=== PATIENT | female | born 1965 | race Two or more races ===

== ENCOUNTER 2020-03-25 13:44 | Emergency (ER) | payer SELFPAY ==
[~2020-03-25] VITALS: Ht 152.4 cm; Wt 122.5 kg
[2020-03-25 14:24] LABS: Urine WBC None Seen /hpf (0 - 5)
[2020-03-25 14:44] LABS: Basophils # (auto) 0 10 ^3/uL (0-0.2); Basophils % (auto) 0.6 % (0.0-2.0); Eosinophils # (auto) 0.1 10 ^3/uL (0-0.8); Eosinophils % (auto) 1.3 % (0.0-7.0); Hematocrit 44.3 % (36.0-46.0); Hemoglobin 15.2 g/dL (12.2-16.2); Lymphocytes # (auto) 3.2 10 ^3/uL (0.4-5.4); Lymphocytes % (auto) 44.3 % (10.0-50.0); Mean Corpuscular Hemoglobin 30.1 pg (28.0-32.0); Mean Corpuscular Hgb Conc. 34.4 g/dL (32.0-36.0); Mean Corpuscular Volume 87.4 fL (80.0-100.0); Monocytes # (auto) 0.5 10 ^3/uL (0-1.3); Monocytes % (auto) 6.7 % (0.0-12.0); Neutrophils # (auto) 3.4 10 ^3/uL (1.6-8.6); Neutrophils % (auto) 47.1 % (37.0-80.0); Nucleated Red Blood Cells % 0.1 %; Platelet Count (auto) 307 10^3/uL (140-450); Red Blood Cells 5.06 10^6/uL (4.0-5.20); Red Cell Distribution Width 13.7 % (11.8-14.3); White Blood Cell 7.2 10^3/uL (4.4-10.8)
[2020-03-25 14:45] LABS: Urine Bacteria FEW /hpf (None Seen); Urine Blood Negative /uL (Negative); Urine Specific Gravity 1.005 (1.001-1.035)
[2020-03-25 14:58] LABS: Albumin 4.1 g/dL (3.4-5.0); BUN/Creatinine Ratio 13.7; Calcium 9.5 mg/dL (8.5-10.1); Potassium 3.7 mmol/L (3.5-5.1)
[2020-03-25 15:01] LABS: Bilirubin, Total 0.4 mg/dL (0.2-1.0); Total Protein 8.1 g/dL (6.4-8.2)
[2020-03-25 17:32] VITALS: BP 156/83
== END 2020-03-25 17:34 | disposition home or self-care (01) ==
LOC: ER 13:44
DX: R10.32 Left lower quadrant pain (principal); M25.512 Pain in left shoulder; R05 Cough; I10 Essential (primary) hypertension
CPT/HCPCS: 36415; 74176; 80053; 81001; 85025

== ENCOUNTER 2023-01-19 10:02 | Inpatient (IN) | payer MEDICAID ==
[2023-01-17 12:20] LABS: Basophils # (auto) 0.1 10 ^3/uL (0-0.2); Basophils % (auto) 1.1 % (0.0-2.0); Eosinophils # (auto) 0.1 10 ^3/uL (0-0.8); Hemoglobin 14.1 g/dL (12.2-16.2); Lymphocytes # (auto) 2.1 10 ^3/uL (0.4-5.4); Lymphocytes % (auto) 34.6 % (10.0-50.0); Mean Corpuscular Hemoglobin 30.1 pg (28.0-32.0); Mean Corpuscular Hgb Conc. 34.4 g/dL (32.0-36.0); Mean Corpuscular Volume 87.4 fL (80.0-100.0); Monocytes # (auto) 0.3 10 ^3/uL (0-1.3); Monocytes % (auto) 5.5 % (0.0-12.0); Neutrophils # (auto) 3.4 10 ^3/uL (1.6-8.6); Neutrophils % (auto) 56.8 % (37.0-80.0); Nucleated Red Blood Cells % 0.1 %; Red Blood Cells 4.69 10^6/uL (4.0-5.20); Red Cell Distribution Width 14.1 % (11.8-14.3)
[2023-01-17 12:29] LABS: Urine Bacteria FEW /hpf (None Seen); Urine Blood Negative /uL (Negative); Urine Specific Gravity 1.024 (1.001-1.035); Urine WBC 2 /hpf (0 - 5)
[2023-01-17 12:47] LABS: INR 0.98 (0.9-1.15); Partial Thromboplastin Time 26.5 sec (24.6-33.4)
[2023-01-17 12:59] LABS: Albumin 3.8 g/dL (3.4-5.0); Calcium 8.7 mg/dL (8.5-10.1); Potassium 4.2 mmol/L (3.5-5.1)
[2023-01-17 13:04] LABS: BUN/Creatinine Ratio 18.9 (10.0-20.0); Bilirubin, Total 0.3 mg/dL (0.2-1.0); Total Protein 7.1 g/dL (6.4-8.2)
[~2023-01-19] VITALS: Ht 154.9 cm; Wt 107.3 kg
[~2023-01-19 10:02] MED LIST: HYDR25TA5 PO; LOSA25TA15 PO; METF-489 PO
[2023-01-19] MEDS ORDERED: ceFAZolin 1GM/50ML 100 ML IV ONE (14:23)
[2023-01-19] MEDS ORDERED: ONDANSETRON HCL 4 MG/2 ML VIAL ONE (14:47)
[2023-01-19] MEDS ORDERED: KETOROLAC TROMETH 30 MG/ML 1ML VIAL ONE (14:47)
[2023-01-19] MEDS ORDERED: GLYCOPYRROLATE 0.2 MG/ML 1ML VIAL ONE (14:47)
[2023-01-19] MEDS ORDERED: LIDOCAINE 2% (LOCAL ANESTH.) PF 5ml SDV ONE (14:47)
[2023-01-19] MEDS ORDERED: DexAMETHasone SOD PHOS 10MG/1ML VIAL INJ ONE (14:47)
[2023-01-19] MEDS ORDERED: LIDOCAINE 1% (LOCAL ANESTH.) PF 5ml SDV ONE (15:12)
[2023-01-19] MEDS ORDERED: BUPIVACAINE 0.25% INJ 50ML VIAL ONE (15:12)
[2023-01-19] MEDS ORDERED: HYDR-4902 PO (16:58)
[2023-01-19] MEDS ORDERED: AUG875T PO (16:58)
[2023-01-19] MEDS ORDERED: ONDANSETRON HCL 4 MG/2 ML VIAL IV PRN ×2 (17:15→18:00)
[2023-01-19] MEDS ORDERED: MORPHINE SULFATE 4 MG/ML SYR/VIAL IV PRN (17:15)
[2023-01-19] MEDS ORDERED: MIDAZOLAM HCL 2MG/2ML 2ml VIAL (1mg/ml) IV PRN (17:15)
[2023-01-19] MEDS ORDERED: LABETALOL HCL 5 MG/ML 4ML SYRINGE IV PRN (17:15)
[2023-01-19] MEDS ORDERED: HYDROmorphone HCL 2 MG/ML VL/or syr IV PRN (17:15)
[2023-01-19] MEDS ORDERED: ePHEDrine SULFATE 50 MG/ML AMP IV PRN (17:15)
[2023-01-19] MEDS ORDERED: DEXTROSE (50%) 50ML SYRG IV PRN (18:00)
[2023-01-19] MEDS: SODIUM CHLORIDE 0.9% 1,000 ML IV SCH (18:33)
[2023-01-19 19:02] VITALS: BP 121/58
[2023-01-19 19:48] LABS: Magnesium 2.3 mg/dL (1.6-2.6); Phosphorus 2.8 mg/dL (2.5-4.90)
[2023-01-19 20:00] VITALS: BP 121/58
[2023-01-19] MEDS: ceFAZolin 1GM/50ML 50 ML IV SCH (21:30)
[2023-01-19] MEDS: ACCU-CHEK COMFORT CURVE STRIP VI SCH (21:33)
[2023-01-19] MEDS: InsuLIN REG 1unit/0.01ml Soln (100units/ml) SC SCH (21:49)
[2023-01-20] MEDS: MORPHINE SULFATE INJ 2 MG/ml SYRG IV PRN ×2 (02:09→12:07)
[2023-01-20] MEDS: SODIUM CHLORIDE 0.9% 1,000 ML IV SCH ×4 (04:58→23:40)
[2023-01-20] MEDS: ceFAZolin 1GM/50ML 50 ML IV SCH ×3 (05:24→21:42)
[2023-01-20] MEDS: ACCU-CHEK COMFORT CURVE STRIP VI SCH ×2 (06:29→11:58)
[2023-01-20] MEDS: InsuLIN REG 1unit/0.01ml Soln (100units/ml) SC SCH ×2 (06:32→11:30)
[2023-01-20 07:12] LABS: Basophils # (auto) 0 10 ^3/uL (0-0.2); Basophils % (auto) 0.1 % (0.0-2.0); Eosinophils # (auto) 0 10 ^3/uL (0-0.8); Lymphocytes # (auto) 1.2 10 ^3/uL (0.4-5.4); Lymphocytes % (auto) 13.4 % (10.0-50.0); Mean Corpuscular Hemoglobin 30.5 pg (28.0-32.0); Mean Corpuscular Hgb Conc. 35.2 g/dL (32.0-36.0); Mean Corpuscular Volume 86.6 fL (80.0-100.0); Monocytes # (auto) 0.2 10 ^3/uL (0-1.3); Monocytes % (auto) 2.6 % (0.0-12.0); Neutrophils # (auto) 7.5 10 ^3/uL (1.6-8.6); Neutrophils % (auto) 83.9 % (37.0-80.0); Nucleated Red Blood Cells % 0.1 %; Red Blood Cells 4.27 10^6/uL (4.0-5.20); Red Cell Distribution Width 14.4 % (11.8-14.3); White Blood Cell 8.9 10^3/uL (4.4-10.8)
[2023-01-20 07:57] LABS: Albumin 3.2 g/dL (3.4-5.0); Potassium 3.7 mmol/L (3.5-5.1)
[2023-01-20 08:00] VITALS: BP 111/59
[2023-01-20 08:08] LABS: BUN/Creatinine Ratio 16.7 (10.0-20.0); Bilirubin, Total 0.3 mg/dL (0.2-1.0)
[2023-01-20] MEDS: LOSARTAN POTASSIUM 25 MG TAB PO SCH (08:44)
[2023-01-20] MEDS: PANTOPRAZOLE 40 MG/10 ML VIAL INJ IV SCH (08:44)
[2023-01-20] MEDS: HCTZ 25 MG TAB PO SCH (08:45)
[2023-01-20 13:31] VITALS: BP 120/73
[2023-01-20] MEDS: ACETAMINOPHEN 500 MG TAB PO PRN (16:41)
[2023-01-20 16:46] VITALS: BP_SYST 124; BP_SYST 140; BP_DIAS 62; BP_DIAS 95
[2023-01-20] MEDS: HYDROcodone-ACET 5/325MG TAB PO PRN (21:42)
[2023-01-20 22:00] VITALS: BP 108/64
[2023-01-21 05:00] VITALS: BP 116/64
[2023-01-21] MEDS: ceFAZolin 1GM/50ML 50 ML IV SCH ×3 (05:54→22:04)
[2023-01-21 09:00] VITALS: BP 126/65
[2023-01-21] MEDS: DOCUSATE SOD 100 MG CAP PO PRN (09:20)
[2023-01-21] MEDS: HCTZ 25 MG TAB PO SCH (09:21)
[2023-01-21] MEDS: LOSARTAN POTASSIUM 25 MG TAB PO SCH (09:22)
[2023-01-21] MEDS: PANTOPRAZOLE 40 MG/10 ML VIAL INJ IV SCH (09:23)
[2023-01-21] MEDS: HYDROcodone-ACET 5/325MG TAB PO PRN ×2 (09:23→17:20)
[2023-01-21 13:00] VITALS: BP 115/64
[2023-01-21] MEDS: SODIUM CHLORIDE 0.9% 1,000 ML IV SCH ×2 (13:11→22:05)
[2023-01-21] MEDS ORDERED: HYDR-4902 PO (13:58)
[2023-01-21] MEDS ORDERED: AUG875T PO (13:58)
[2023-01-21 17:00] VITALS: BP 125/59
[2023-01-21] MEDS: ACETAMINOPHEN 500 MG TAB PO PRN (18:55)
[2023-01-21 22:00] VITALS: BP 120/67
[2023-01-22] MEDS: HYDROcodone-ACET 5/325MG TAB PO PRN ×2 (02:39→11:49)
[2023-01-22] MEDS: SODIUM CHLORIDE 0.9% 1,000 ML IV SCH ×2 (04:20→12:40)
[2023-01-22 05:00] VITALS: BP 117/57
[2023-01-22] MEDS: ceFAZolin 1GM/50ML 50 ML IV SCH ×2 (06:07→14:00)
[2023-01-22] MEDS: LOSARTAN POTASSIUM 25 MG TAB PO SCH (08:47)
[2023-01-22] MEDS: PANTOPRAZOLE 40 MG/10 ML VIAL INJ IV SCH (08:47)
[2023-01-22] MEDS: HCTZ 25 MG TAB PO SCH (08:48)
[2023-01-22] MEDS: ACETAMINOPHEN 500 MG TAB PO PRN (08:48)
[2023-01-22 09:00] VITALS: BP 143/74
[2023-01-22] MEDS: DOCUSATE SOD 100 MG CAP PO PRN (11:49)
[2023-01-22 12:54] VITALS: BP 133/66
[2023-01-22 14:09] VITALS: BP 147/82
== END 2023-01-22 15:07 | disposition home or self-care (01) | DRG 314 ==
LOC: SUR 10:02 → TELE 17:51 → TELE-WESTW 18:25
PROVIDERS: ADMIT Nurse Practitioner Family; ATTEND Internal Medicine Geriatric Medicine
PROC: BQ1MZZZ Fluoroscopy of Left Foot (ICD-10-PCS; 2023-01-19)
PROC: 0QSP04Z Reposition Left Metatarsal with Internal Fixation Device, Open Approach (ICD-10-PCS; principal; 2023-01-19 15:14)
DX: M20.12 Hallux valgus (acquired), left foot (principal); E11.9 Type 2 diabetes mellitus without complications; R00.1 Bradycardia, unspecified; M24.50 Contracture, unspecified joint; I10 Essential (primary) hypertension; E66.9 Obesity, unspecified; Z68.41 Body mass index [BMI] 40.0-44.9, adult; Z83.3 Family history of diabetes mellitus
CPT/HCPCS: 36415; 73630; 76000; 80053; 81001; 82962; 83735; 84100; 85025; 85610; 85730; 93306; 97110; 97116; 97163; 97530; C9113; G0378; J0690; J1100; J1815; J1885; J2001; J2405; J3490

== ENCOUNTER → 2023-12-21 | Day surgery (SDC) | payer MEDICAID ==
[2023-12-18 14:32] LABS: Basophils # (auto) 0.1 10 ^3/uL (0-0.2); Basophils % (auto) 0.6 % (0.0-2.0); Eosinophils # (auto) 0.1 10 ^3/uL (0-0.8); Eosinophils % (auto) 1.1 % (0.0-7.0); Hematocrit 40.2 % (36.0-46.0); Hemoglobin 13.5 g/dL (12.2-16.2); Lymphocytes # (auto) 2.5 10 ^3/uL (0.4-5.4); Lymphocytes % (auto) 31.8 % (10.0-50.0); Mean Corpuscular Hemoglobin 28.8 pg (28.0-32.0); Mean Corpuscular Hgb Conc. 33.5 g/dL (32.0-36.0); Mean Corpuscular Volume 85.8 fL (80.0-100.0); Monocytes # (auto) 0.4 10 ^3/uL (0-1.3); Monocytes % (auto) 4.9 % (0.0-12.0); Neutrophils # (auto) 4.9 10 ^3/uL (1.6-8.6); Neutrophils % (auto) 61.6 % (37.0-80.0); Red Blood Cells 4.68 10^6/uL (4.0-5.20); Red Cell Distribution Width 14.1 % (11.8-14.3)
[2023-12-18 14:43] LABS: INR 1.05 (0.9-1.15); Partial Thromboplastin Time 27.2 SEC (24.5-34.5); Prothrombin Time 11.1 sec (9.3-11.8); Urine Bacteria FEW /hpf (None Seen); Urine Blood Negative /uL (Negative); Urine Clarity Clear (Clear); Urine Protein, UAD Negative (Negative); Urine Specific Gravity 1.009 (1.001-1.035); Urine Urobilinogen Normal (Negative); Urine WBC 1 /hpf (0 - 5); Urine pH 5.5 (5.0-9.0)
[2023-12-18 14:48] LABS: Urine Color STRAW (Yellow)
[2023-12-18 15:08] LABS: Alanine Aminotransferase 21 U/L (7-40); Albumin 4.5 g/dL (3.2-4.8); Alkaline Phosphatase 86 U/L (46-116); Anion Gap 6 (5-15); Aspartate Aminotransferase 18 U/L (13-40); BUN/Creatinine Ratio 27.6 (10.0-20.0); Bilirubin, Total 0.3 mg/dL (0.2-1.0); Blood Urea Nitrogen 24 mg/dL (9-23); Calcium 10.1 mg/dL (8.5-10.1); Carbon Dioxide 28 mmol/L (20-30); Chloride 105 mmol/L (98-107); Glucose 101 mg/dL (74-106); Potassium 3.6 mmol/L (3.5-5.1); Sodium 139 mmol/L (136-145); Total Protein 7.3 g/dL (5.7-8.2)
[~2023-12-21] VITALS: Ht 154.9 cm; Wt 97.1 kg
[~2023-12-21] MED LIST changes: +APIX5TAB PO; +AUG875T PO; +DULO60CA41 PO; +DexAMETHasone SOD PHOS 10MG/1ML VIAL INJ ONE; +HYDR-4902 PO; +LIDOCAINE HCL (LOCAL ANESTH.) 0.5 % 50ML MDV IJ ONE; +LOSA-533 PO; -LOSA25TA15 PO; +MEPERIDINE HCL (25 MG/ML) 1ML VIAL IV PRN; +MEPERIDINE HCL (25 MG/ML) 1ML VIAL ONE; -METF-489 PO; +ONDANSETRON HCL 4 MG/2 ML VIAL ONE; +PROPOFOL 10 MG/ML 20 ML IV ONE; +TRAM50TA2 PO; +ceFAZolin 2 GM/D5W50ml 50 ML IV ONE; +fentaNYL CITRATE 100 MCG/2 ML VL ONE
[2023-12-21] MEDS: BUPIVACAINE 0.25% INJ 50ML VIAL ONE (09:44)
[2023-12-21] MEDS: LIDOCAINE 1% HCL (LOCAL ANESTH.) INJ 20ML MDV ONE (09:44)
[2023-12-21 10:06] VITALS: TEMP 97.6; O2SAT 92
[2023-12-21] MEDS: HYDROmorphone HCL 2 MG/ML VL/or syr IV PRN (10:35)
[2023-12-21 11:05] VITALS: BP 133/56; PULSE 70; RESP 12; O2SAT 92
[2023-12-21] MEDS: ONDANSETRON HCL 4 MG/2 ML VIAL IV ONE (11:18)
== END | disposition home or self-care (01) ==
LOC: SUR 08:23
PROVIDERS: ATTEND Student in an Organized Health Care Education/Training Program
DX: T84.84XD Pain due to internal orthopedic prosthetic devices, implants and grafts, subsequent encounter (principal); G90.522 Complex regional pain syndrome I of left lower limb; I10 Essential (primary) hypertension; E11.9 Type 2 diabetes mellitus without complications; G47.30 Sleep apnea, unspecified; E66.9 Obesity, unspecified; Z68.41 Body mass index [BMI] 40.0-44.9, adult; Z79.890 Hormone replacement therapy; Z79.899 Other long term (current) drug therapy; Z86.718 Personal history of other venous thrombosis and embolism; Z86.2 Personal history of diseases of the blood and blood-forming organs and certain disorders involving the immune mechanism; Z86.16 Personal history of COVID-19; Z98.890 Other specified postprocedural states; Z83.3 Family history of diabetes mellitus; X58.XXXD Exposure to other specified factors, subsequent encounter
CPT/HCPCS: 20680; 36415; 73620; 73630; 80053; 81001; 82962; 85025; 85610; 85730; 88300; C1713; J0690; J1100; J1170; J2001; J2175; J2405; J2704; J3010; J3490; 76000

== ENCOUNTER 2025-05-07 07:02 | Day surgery (SDC) | payer MEDICAID ==
[~2025-05-07] VITALS: Ht 157.5 cm; Wt 104.8 kg
[~2025-05-07 07:02] MED LIST changes: +AMIT-118 PO; -APIX5TAB PO; -AUG875T PO; -DULO60CA41 PO; -DexAMETHasone SOD PHOS 10MG/1ML VIAL INJ ONE; -HYDR-4902 PO; -HYDR25TA5 PO; -LIDOCAINE HCL (LOCAL ANESTH.) 0.5 % 50ML MDV IJ ONE; -MEPERIDINE HCL (25 MG/ML) 1ML VIAL IV PRN; -MEPERIDINE HCL (25 MG/ML) 1ML VIAL ONE; -ONDANSETRON HCL 4 MG/2 ML VIAL ONE; +PANT40T PO; -PROPOFOL 10 MG/ML 20 ML IV ONE; +TIRZ2.5I SC; -TRAM50TA2 PO; -ceFAZolin 2 GM/D5W50ml 50 ML IV ONE; -fentaNYL CITRATE 100 MCG/2 ML VL ONE
[2025-05-07] MEDS ORDERED: MORPHINE SULFATE INJ 2 MG/ml SYRG IV PRN (07:30)
[2025-05-07] MEDS ORDERED: HYDROmorphone HCL 2 MG/ML VL/or syr IV PRN ×2 (07:30)
[2025-05-07] MEDS ORDERED: KETOROLAC TROMETH 30 MG/ML 1ML VIAL IV ONE (07:30)
[2025-05-07] MEDS ORDERED: MORPHINE SULFATE 4 MG/ML SYR/VIAL IV PRN (07:30)
[2025-05-07] MEDS ORDERED: KETAMINE 50mg/ML 10ml Vial 10 ML ONE (07:44)
[2025-05-07] MEDS ORDERED: ONDANSETRON HCL 4 MG/2 ML VIAL ONE ×2 (07:44→09:50)
[2025-05-07] MEDS ORDERED: fentaNYL CITRATE 100 MCG/2 ML VL ONE (07:44)
[2025-05-07] MEDS ORDERED: SODIUM CHLORIDE LOCK 10 ML ONE (07:44)
[2025-05-07] MEDS ORDERED: LIDOCAINE 1% INJ PF 5ML AMP ONE (07:44)
[2025-05-07] MEDS ORDERED: MIDAZOLAM HCL 2MG/2ML 2ml VIAL (1mg/ml) ONE (07:44)
[2025-05-07] MEDS ORDERED: PROPOFOL 10 MG/ML 20 ML IV ONE (07:45)
[2025-05-07] MEDS ORDERED: SIMETHICONE 40 MG/0.6 ML ORAL DROP ONE (07:59)
[2025-05-07] MEDS ORDERED: LIDOCAINE VISCOUS 2% 15ML UD ONE (07:59)
[2025-05-07 08:43] VITALS: PULSE 63; RESP 17; TEMP 98.7; O2SAT 96
--- NOTE | 2025-05-07 08:44 | DVHHP2 ---
GI H&P Pre-Op Assessment Date: 05/07/25 Chief complaint: colon cancer screening, upper abdominal pain, GERD HPI: per clinic note Past medical history: per clinic note Past surgical history: per clinic note Family history: per clinic note Physical exam: General: NAD, AAOX3 HEENT: PERRL, no scleral icterus, normal hearing, gums without lesions or bleeding, oropharynx clear without erythema or exudate. Neck: Supple without enlargement of the thyroid, or lymphadenopathy. Chest: Normal size and shape, no tenderness, lung blevins clear to auscultation and percussion, nonlabored breathing. Heart: RRR, no murmur Abdomen: non-distended, no tenderness to palpation, +BS, no hepatosplenomegaly Extremities: no edema Neurological: CN II-XII intact, sensation intact in all extremities, 5+ strength in all extremities Skin: No rashes, No jaundice Assessment: - colon cancer screening - upper abdominal pain, GERD Plan: - EGD - Colonoscopy - Risks (bleeding, infection, perforation, reaction to sedation medications and cardiopulmonary arrest) and benefit of the procedure were explained to patient. Patient agrees to undergo the procedure. JUSTYN MCCAULEY MD May 07, 2025 08:44
--- NOTE | 2025-05-07 08:46 | DVHOP2 ---
Operative Report DATE OF OPERATION: 05/07/25 PROCEDURE: Upper Endoscopy. PREOPERATIVE INDICATION: The patient is a 59 -year-old female undergoing endoscopy for upper abdominal pain, GERD. POSTOPERATIVE DIAGNOSES: 1. Mild gastritis PROCEDURE PERFORMED BY: Murray Chen SCOPE: Olympus videoendoscope. ASA CLASS: 3 PREOPERATIVE MEDICATIONS: MAC with Dr Funes PROCEDURE IN DETAIL: After obtaining an informed consent, the patient was placed on her back. The patient was then sedated with the above medications. A bite block was placed between her teeth. The endoscope was then passed through the oropharynx, into the esophagus, and through the stomach and pylorus up to the second and third part of the duodenum. The duodenum was normal in appearance. There was mild gastritis. Gastric biopsy obtained using cold forceps. The GE junction was normal in appearance at 36 cm. The esophagus was normal in appearance. The endoscope was then withdrawn. The patient tolerated the procedure well without difficulty. COMPLICATIONS : None SPECIMENS: Gastric biopsies DISPOSITION: D/C to home PLAN: 1. Await for biopsy result 2. Continue with Protonix. MURRAY CHEN MD May 07, 2025 08:46
--- NOTE | 2025-05-07 08:47 | DVHOP2 ---
Operative Report DATE OF OPERATION: 05/07/25 PROCEDURE: Colonoscopy. PREOPERATIVE INDICATION: The patient is a 59 -year-old female undergoing colonoscopy for colon cancer screening. POSTOPERATIVE DIAGNOSES: 1. Few small diverticulosis. 2. Small internal hemorrhoids PROCEDURE PERFORMED BY: Murray Chen M.D. SCOPE: Olympus videocolonoscope. ASA CLASS: 3 PREOPERATIVE MEDICATIONS: MAC with D Funes PROCEDURE IN DETAIL: After obtaining an informed consent, the patient was placed on left lateral decubitus position. She was then sedated with the above medications. A rectal examination was performed that was normal. The colonoscope was then passed through the anus into the rectosigmoid and through the descending, transverse, and ascending colon up to the cecum with visualization of the appendiceal orifice, base of the cecum and the ileocecal valve. No mass or polyp was observed. There were few small diverticulosis. There were small internal hemorrhoids. The colonoscope was then withdrawn. The patient tolerated the procedure well without difficulty. WITHDRAWAL TIME: 7 minutes QUALITY OF THE PREP: [place] Bowel Prep score: 8 COMPLICATIONS : None SPECIMENS: None DISPOSITION: D/C to home PLAN: 1. Repeat colonoscopy 10 years for colon cancer screening. MURRAY CHEN MD May 07, 2025 08:47
--- NOTE | 2025-05-07 08:48 | DVHDS2 ---
Physician Discharge Progress N Final Diagnosis: Mild gastritis Diverticulosis, small internal hemorrhoids Operations or Procedures: Operations or Procedures EGD with cold biopsies Colonoscopy Condition on Discharge: Good Disposition: Home Discharge Instructions: Diet: Regular Activity: No Restrictions, As Tolerated Medications: Previous home medications Follow Up Care: Discharge Statement: "Patient was advised to return to the ER or call 911 if any headaches, dizziness, shortness of breath, chest pain, abdominal pain, bleeding, fevers, or worsening of medical condition. Patient was counseled about treatment plan, medications, possible side effects, patientverbalized understanding. All questions were answered to the best of my ability. This discharge took greater then 30 minutes in planning, reviewing documentation, counseling the patient, and discussing with other team members." JUSTYN MCCAULEY MD May 07, 2025 08:48
[2025-05-07 08:53] VITALS: PULSE 67; RESP 18; O2SAT 98
[2025-05-07 09:28] VITALS: BP 129/74; PULSE 64; RESP 16; O2SAT 95
[2025-05-07] MEDS ORDERED: METOCLOPRAMIDE HCL 5MG/ml INJ 2ml VIAL ONE (09:51)
[2025-05-07] MEDS: ONDANSETRON HCL 4 MG/2 ML VIAL IV ONE (09:52)
[2025-05-07] MEDS: METOCLOPRAMIDE HCL 5MG/ml INJ 2ml VIAL IV PRN (10:00)
== END 2025-05-07 10:10 | disposition home or self-care (01) ==
LOC: GI 07:02
PROVIDERS: ATTEND Internal Medicine Gastroenterology
DX: Z12.11 Encounter for screening for malignant neoplasm of colon (principal); K57.30 Diverticulosis of large intestine without perforation or abscess without bleeding; K64.8 Other hemorrhoids; K29.50 Unspecified chronic gastritis without bleeding; K21.9 Gastro-esophageal reflux disease without esophagitis; R10.10 Upper abdominal pain, unspecified; I10 Essential (primary) hypertension; E11.9 Type 2 diabetes mellitus without complications; E78.5 Hyperlipidemia, unspecified; G47.33 Obstructive sleep apnea (adult) (pediatric); M19.90 Unspecified osteoarthritis, unspecified site; Z79.899 Other long term (current) drug therapy; Z98.890 Other specified postprocedural states
CPT/HCPCS: 43239; 45378; 82962; 88305; 88342; J2250; J2405; J2704; J2765; J3010; J7030